=== PATIENT | male | born 1995 | race African-American/Black ===

== ENCOUNTER 2020-12-05 21:44 | Emergency (ER) | payer MEDICAID ==
[~2020-12-05] VITALS: Ht 165.1 cm; Wt 70.0 kg
[2020-12-05] MEDS ORDERED: KETOROLAC 60MG/2ML VIAL IM ONE (22:30)
[2020-12-05 23:47] VITALS: BP 125/60
[2020-12-06] MEDS ORDERED: IBUP-2029 MT (00:14)
== END 2020-12-06 00:44 | disposition home or self-care (01) ==
LOC: ER 21:44
DX: S62.610A Displaced fracture of proximal phalanx of right index finger, initial encounter for closed fracture (principal); F12.10 Cannabis abuse, uncomplicated; Y04.0XXA Assault by unarmed brawl or fight, initial encounter; Y93.89 Activity, other specified; Y92.018 Other place in single-family (private) house as the place of occurrence of the external cause
CPT/HCPCS: 29130; 73130; 96372; 99283; J1885

== ENCOUNTER 2021-02-06 21:13 | Emergency (ER) | payer MEDICAID ==
[~2021-02-06] VITALS: Ht 165.1 cm; Wt 73.0 kg
[~2021-02-06 21:13] MED LIST: IBUP-2029 MT
[2021-02-06 23:27] VITALS: BP 134/52
== END 2021-02-06 23:29 | disposition home or self-care (01) ==
LOC: ER 21:13
DX: T18.9XXA Foreign body of alimentary tract, part unspecified, initial encounter (principal); F12.10 Cannabis abuse, uncomplicated; X58.XXXA Exposure to other specified factors, initial encounter; Y93.89 Activity, other specified; Y92.018 Other place in single-family (private) house as the place of occurrence of the external cause
CPT/HCPCS: 71045; 74018; 99284